=== PATIENT | female | born 1935 | race Hispanic/Latino ===

== ENCOUNTER → 2020-04-11 | Outpatient (CLI) | payer OTHER, MEDICARE ==
[~2020-04-11] MED LIST: ASPI-555 PO; BIMA12.5OS OU; COLC0.6C3 PO; DOXY100C40 PO; FEBU40TA PO; PROP10DR5 OP
== END | disposition home or self-care (01) ==
LOC: RAH 09:12
PROVIDERS: ATTEND Family Medicine
DX: K80.20 Calculus of gallbladder without cholecystitis without obstruction (principal); Q61.01 Congenital single renal cyst
CPT/HCPCS: 76700

== ENCOUNTER → 2021-01-31 | Outpatient (CLI) | payer OTHER, MEDICARE ==
[~2021-01-31] MED LIST changes: -ASPI-555 PO; +ASPI-556 PO
== END | disposition home or self-care (01) ==
LOC: OIH 12:59
PROVIDERS: ATTEND Family Medicine
DX: M79.89 Other specified soft tissue disorders (principal); M79.602 Pain in left arm; M25.562 Pain in left knee; W18.11XA Fall from or off toilet without subsequent striking against object, initial encounter
CPT/HCPCS: 73090; 73100; 73130; 73562

== ENCOUNTER 2023-10-10 16:24 | Emergency (ER) | payer OTHER, MEDICARE ==
[~2023-10-10] VITALS: Ht 152.4 cm; Wt 73.9 kg
[~2023-10-10 16:24] MED LIST changes: -ASPI-556 PO; -BIMA12.5OS OU; -COLC0.6C3 PO; +CYAN250010 PO; +DONE5TAB33 PO; -DOXY100C40 PO; +ERGO500093 PO; -FEBU40TA PO; +FOLI0.8T3 PO; +FURO20TA4 PO; +GABA-529 PO; +LEVE10006 PO; +LEVO750T39 PO; +MIRA25TA PO; +POTA-200 PO; +PRAV10TA39 PO; -PROP10DR5 OP; +PYRI25TA3 PO
[2023-10-10 21:36] LABS: ADD UA MICROSCOPIC YES; APPEARANCE,URINE CLEAR (CLEAR); BILIRUBIN,URINE NEGATIVE (NEGATIVE); COLOR,URINE YELLOW (YELLOW); GLUCOSE, URINE (UA) NEGATIVE (NEGATIVE); KETONES,URINE 10 mg/dL (NEGATIVE); LEUKOCYTE ESTERASE ,URINE 250 Leu/uL (NEGATIVE); NITRATE,URINE NEGATIVE (NEGATIVE); OCCULT BLOOD,URINE SMALL (NEGATIVE); PH,URINE 5.5 (5.0-8.0); PROTEIN,URINE 30 mg/dL (NEGATIVE); UROBILINOGEN,URINE 0.2 mg/dL (0.2-1.0)
[2023-10-10 22:40] LABS: BACTERIA,URINE MOD /HPF (None Seen); MUCUS,URINE RARE LPF (None Seen); SQUAMOUS EPITHELIAL CELL,UR FEW /HPF (0-2); WBC,URINE 26-50 /HPF (0-1)
[2023-10-10] MEDS ORDERED: CEFU500T67 PO (23:26)
[2023-10-10 23:32] VITALS: BP 148/70; PULSE 85; RESP 17; O2SAT 96
== END 2023-10-10 23:39 | disposition home or self-care (01) ==
LOC: EDH 16:24
DX: N39.0 Urinary tract infection, site not specified (principal); R56.9 Unspecified convulsions; Z79.899 Other long term (current) drug therapy; Z98.890 Other specified postprocedural states; Z90.710 Acquired absence of both cervix and uterus; Z88.8 Allergy status to other drugs, medicaments and biological substances
CPT/HCPCS: 81001; 87077; 87088; 87186